=== PATIENT | female | born 1980 | race Caucasian/White ===

== ENCOUNTER → 2020-07-28 06:50 | Outpatient (CLI) | payer BC, SELFPAY ==
[2020-07-28 11:46] LABS: Influenza Control Positive
[2020-07-28 22:34] LABS: SARS-CoV-2 RNA PCR Negative
== END ==
PROVIDERS: PCP Family Medicine; Visit Provider Family Medicine
DX: Z20.822 Contact with and (suspected) exposure to COVID-19 (principal); J02.9 Acute pharyngitis, unspecified
CPT/HCPCS: 87804; C9803; U0003; U0005

== ENCOUNTER 2022-03-27 12:37 | Outpatient (CLI) | payer BC, SELFPAY ==
--- NOTE | ~2022-03-27 | XR_ITS ---
EXAM: XR ankle LT min 3V DATE: 03/27/2022 12:51 HISTORY: Follow up from left ankle injury . COMPARISON: None available. FINDINGS: Normal mineralization. Cortical irregularity along the talar dome with subjacent subchondr al cyst formation. Achilles and plantar enthesopathy. Degenerative changes in the tibiotalar joint. T ransverse fracture of the distal fibula with sclerosis along the fracture margins. No erosion or antonio osteal change. Soft tissues within normal limits. 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 Possible osteochondral lesion in the medial talar dome. Reviewed, dictated and finalized at location K. 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 Possible osteochondral lesion in the medial talar dome.
== END 2022-03-27 12:38 | disposition home or self-care (01) ==
LOC: ANHBWCIMG 12:39
PROVIDERS: PCP Family Medicine; Visit Provider Orthopaedic Surgery
DX: S82.492A Other fracture of shaft of left fibula, initial encounter for closed fracture (principal)
CPT/HCPCS: 73610